=== PATIENT | male | born 1980 ===

== ENCOUNTER 2019-02-05 00:01 | Emergency (ER) | payer MEDICAID, OTHER ==
[~2019-02-05] VITALS: Ht 185.4 cm; Wt 98.0 kg
[~2019-02-05 00:01] MED LIST: HYDR-3240 PO
[2019-02-05 00:03] VITALS: BP 145/99
[2019-02-05] MEDS ORDERED: LIDOCAINE 1%-EPI 1:100K, 20ML ONE (00:12)
[2019-02-05] MEDS ORDERED: LIDOCAINE 1%-EPI 1:100K, 20ML INFIL ONE (00:30)
[2019-02-05] MEDS ORDERED: DIPH,PERTUSS(ACELL),TET VAC/PF 0.5 ML IM-VACC ONE (00:33)
[2019-02-05] MEDS ORDERED: NEOSPORIN OINT. PKT 1 PACKET ONE (00:47)
[2019-02-05] MEDS ORDERED: DIPH,PERTUSS(ACELL),TET VAC/PF NC IM-VACC ONE (01:00)
== END 2019-02-05 01:10 | disposition home or self-care (01) ==
LOC: ED 01:01
DX: S51.811A Laceration without foreign body of right forearm, initial encounter (principal); F17.200 Nicotine dependence, unspecified, uncomplicated; W26.8XXA Contact with other sharp object(s), not elsewhere classified, initial encounter; Y93.89 Activity, other specified; Y92.009 Unspecified place in unspecified non-institutional (private) residence as the place of occurrence of the external cause; Y99.8 Other external cause status
CPT/HCPCS: 12032; 90471; 90715; 99284

== ENCOUNTER 2021-01-30 18:40 | Emergency (ER) | payer MEDICAID ==
[~2021-01-30] VITALS: Ht 185.4 cm; Wt 95.0 kg
[~2021-01-30 18:40] MED LIST changes: +HYDR-2214 PO; -HYDR-3240 PO
--- NOTE | 2021-01-30 19:17 | NUR ---
PT TO ROOM FROM LOBBY. NAD.
[2021-01-30] MEDS ORDERED: BUPIVACAINE 0.25% ONE ×2 (19:49→20:09)
[2021-01-30] MEDS ORDERED: LIDOCAINE-MPF 1%, 5ML ONE (19:50)
[2021-01-30] MEDS ORDERED: BUPIVACAINE/PF-EPI 0.25% 1:200K SQ ONE (20:00)
[2021-01-30] MEDS ORDERED: LIDOCAINE-MPF 1%, 5ML INFIL ONE (20:00)
--- NOTE | 2021-01-30 20:32 | NUR ---
2019 - ED ZOYA FISHMAN AT BEDSIDE FOR I&D PROCEDURE, PT TOLERATED WELL. 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
--- NOTE | 2021-01-30 20:45 | NUR ---
irrigation done. PA aware.
--- NOTE | 2021-01-30 21:15 | NUR ---
patient discharged with instruction. verbalized understanding.
[2021-01-30 22:12] VITALS: BP 134/78
== END 2021-01-30 22:14 | disposition home or self-care (01) ==
LOC: ED 20:45
DX: L02.415 Cutaneous abscess of right lower limb (principal); F17.210 Nicotine dependence, cigarettes, uncomplicated
CPT/HCPCS: 10060; 99283; 99406